=== PATIENT | female | born 1980 | race Caucasian/White ===

== ENCOUNTER 2019-12-11 18:56 | Emergency (ER) | payer OTHER ==
[~2019-12-11] VITALS: Ht 157.5 cm; Wt 77.1 kg
[2019-12-11] MEDS ORDERED: NF (19:24)
[2019-12-12 01:20] LABS: ABSOLUTE NEUTROPHILS 3.5 thou/uL (1.4-8.2); BASOPHILS 0.3 % (0.0-2.0); EOSINOPHILS 2.1 % (0.0-3.0); HEMOGLOBIN 12.5 gm/dL (12.0-15.0); LYMPHOCYTES 43.5 % (24.0-44.0); MCH 31.9 pg (26.0-34.0); MCHC 33.9 g/dL (28.0-37.0); MCV 93.9 fL (80.0-100.0); MONOCYTES 5.7 % (1.0-8.0); PLATELET COUNT 224 thou/uL (150-400); POLYS 48.4 % (36.0-66.0); RBC 3.94 mil/uL (4.20-5.00); RDW 12.2 % (10.5-14.5); WBC 7.2 thou/uL (4.0-11.0)
[2019-12-12 01:25] LABS: ANION GAP 11 mmol/L (7-16); BUN 12 mg/dL (7-18); CALCIUM 7.7 mg/dL (8.5-10.1); CHLORIDE 108 mmol/L (98-107); CO2 26 mmol/L (21-32); CREATININE 0.7 mg/dL (0.6-1.0); GLUCOSE 103 mg/dL (74-106); POTASSIUM 3.2 mmol/L (3.5-5.1); SODIUM 145 mmol/L (136-145)
[2019-12-12 01:31] LABS: ALBUMIN 3.4 g/dL (3.4-5.0); SALICYLATE < 2.8 mg/dL (2.8-20.0); SGOT 29 U/L (15-37); SGPT 23 U/L (30-65); TOTAL BILIRUBIN 0.2 mg/dL (<0.1-1.0); TOTAL PROTEIN 7.1 g/dL (6.4-8.2)
[2019-12-12 04:19] LABS: AMP/METHAMP Negative (Negative); BARBITURATES Negative (Negative); BENZODIAZEPINES Negative (Negative); COCAINE Negative (Negative); METHADONE Negative (Negative); OPIATES Negative (Negative); PCP Negative (Negative)
[2019-12-12] MEDS ORDERED: CELEXA 20 MG TA20 MG PO (05:21)
[2019-12-12 05:35] VITALS: BP 112/63
== END 2019-12-12 05:48 | disposition home or self-care (01) ==
LOC: ER 18:56
PROVIDERS: Emergency Medicine
DX: F32.9 Major depressive disorder, single episode, unspecified (principal); F10.129 Alcohol abuse with intoxication, unspecified; Y90.8 Blood alcohol level of 240 mg/100 ml or more; Z88.6 Allergy status to analgesic agent; Z79.899 Other long term (current) drug therapy

== ENCOUNTER 2019-12-21 11:10 | Emergency (ER) | payer OTHER ==
[~2019-12-21] VITALS: Ht 157.5 cm; Wt 74.8 kg
[~2019-12-21 11:10] MED LIST: CELEXA 20 MG TA20 MG PO; NF
[2019-12-21 11:35] LABS: BASOPHILS 0.3 % (0.0-2.0); HEMATOCRIT 37.2 % (37.0-47.0); MCHC 34.9 g/dL (28.0-37.0); MCV 91.8 fL (80.0-100.0); MONOCYTES 4.3 % (1.0-8.0); PLATELET COUNT 143 thou/uL (150-400); POLYS 81.4 % (36.0-66.0); RBC 4.05 mil/uL (4.20-5.00); RDW 12.1 % (10.5-14.5); WBC 6.2 thou/uL (4.0-11.0)
[2019-12-21 11:39] LABS: CALCIUM 9.2 mg/dL (8.5-10.1); CREATININE 0.9 mg/dL (0.6-1.0); POTASSIUM 3.4 mmol/L (3.5-5.1)
[2019-12-21 11:45] LABS: ALBUMIN 4.1 g/dL (3.4-5.0); MAGNESIUM 1.5 mg/dL (1.8-2.4); TOTAL BILIRUBIN 1.1 mg/dL (<0.1-1.0); TOTAL PROTEIN 8.5 g/dL (6.4-8.2)
[2019-12-21 12:39] LABS: URINE BLOOD NEGATIVE (Negative); URINE CLARITY CLEAR; URINE COLOR YELLOW; URINE GLUCOSE-RANDOM* NEGATIVE (Negative); URINE KETONES 3+ (Negative); URINE LEUKOCYTES-REFLEX NEGATIVE (Negative); URINE NITRITE-REFLEX NEGATIVE (Negative); URINE PROTEIN (DIPSTICK) 1+ (Negative)
[2019-12-21 12:48] LABS: ICTOTEST (BILI CONFIRMATORY) Negative (Negative); SSA (PROTEIN CONFIRMATORY) TRACE (APPROX. 5) mg/dL (Negative); URINE BILIRUBIN NEGATIVE (Negative)
[2019-12-21 12:49] LABS: MUCUS 0-3 Light strn/LPF (None Seen); SQUAMOUS >10 Many /LPF (0-3)
[2019-12-21 12:50] LABS: AMORPHOUS URATES Few /LPF (None Seen); CASTS None Seen /LPF (None Seen); URINE WBC-REFLEX 0-5 Rare /HPF (0-5)
[2019-12-21 12:51] LABS: URINE RBC None Seen /HPF (0-2)
[2019-12-21 15:45] VITALS: BP 141/112
--- NOTE | 2019-12-23 08:57 | EKG ---
[facility] [place] [facility] [place] [address] ELECTROCARDIOGRAM REPORT Name: ROGELIO GARCIA Room #: [facility].#: [id number] Admission: 12/21/19 Attend Phys: Discharge: 12/21/19 Date of : 82 Report #: [id number] THIS REPORT FOR: cc: STACIE - Jennifer family physician/PCP STACIE - Jennifer family physician/PCP Sean Banuelos MD ~ THIS REPORT FOR: //name// [facility] [place] [facility] ED Test Date: 2019-12-21 Test Time: 12:04:43 Pat Name: ROGELIO GARCIA Department: Room: Gender: Road Repairer: [facility] : 1980 Requested By: Bladimir Hanosn Order Number: [id number] MD: Sean Banuelos Measurements Intervals [place] Rate: 76 P: 41 MA: 114 QRS: 65 QRSD: 94 T: 64 QT: 394 QTc: 444 Interpretive Statements Sinus rhythm Borderline short MA interval No previous ECG available for comparison Electronically Signed On 12-23-2019 8:55:31 CDT by Sean Banuelos [email or web address] <ELECTRONICALLY SIGNED> By: Sean Banuelos MD 12/23/19 0855 03 03 Sean Banuelos MD /MIGUEL ANGEL
== END 2019-12-21 15:45 | disposition home or self-care (01) ==
LOC: ER 11:10
PROVIDERS: Emergency Medicine
DX: E86.0 Dehydration (principal); N76.0 Acute vaginitis; B96.89 Other specified bacterial agents as the cause of diseases classified elsewhere

== ENCOUNTER 2020-01-17 21:43 | Emergency (ER) | payer OTHER ==
[~2020-01-17] VITALS: Ht 157.5 cm; Wt 52.6 kg
[2020-01-17 22:53] LABS: ABSOLUTE NEUTROPHILS 6.2 thou/uL (1.4-8.2); BASOPHILS 0.2 % (0.0-2.0); HEMATOCRIT 39.6 % (37.0-47.0); HEMOGLOBIN 13.8 gm/dL (12.0-15.0); LYMPHOCYTES 12.1 % (24.0-44.0); MCH 33.8 pg (26.0-34.0); MCHC 34.9 g/dL (28.0-37.0); MCV 96.9 fL (80.0-100.0); PLATELET COUNT 141 thou/uL (150-400); POLYS 84.7 % (36.0-66.0); RBC 4.09 mil/uL (4.20-5.00); RDW 14.8 % (10.5-14.5); WBC 7.3 thou/uL (4.0-11.0)
[2020-01-17 22:57] LABS: ANION GAP 16 mmol/L (7-16); BUN 14 mg/dL (7-18); CALCIUM 9.1 mg/dL (8.5-10.1); CHLORIDE 98 mmol/L (98-107); CO2 22 mmol/L (21-32); CREATININE 0.8 mg/dL (0.6-1.0); GLUCOSE 145 mg/dL (74-106); POTASSIUM 3.6 mmol/L (3.5-5.1); SODIUM 136 mmol/L (136-145)
[2020-01-17 23:02] LABS: ALBUMIN 4.3 g/dL (3.4-5.0); DIRECT BILIRUBIN < 0.1 mg/dL (<0.1-0.2); LIPASE 147 U/L (73-393); SGOT 162 U/L (15-37); SGPT 122 U/L (30-65); TOTAL BILIRUBIN 0.9 mg/dL (0.2-1.0); TOTAL PROTEIN 8.9 g/dL (6.4-8.2)
[2020-01-17] MEDS ORDERED: NOHOMEMEDICATIONS (23:30)
[2020-01-17 23:48] LABS: URINE BILIRUBIN 2+ (Negative); URINE BLOOD 3+ (Negative); URINE CLARITY CLEAR; URINE COLOR ORANGE; URINE GLUCOSE-RANDOM* NEGATIVE (Negative); URINE KETONES 3+ (Negative); URINE LEUKOCYTES-REFLEX TRACE (Negative); URINE NITRITE-REFLEX NEGATIVE (Negative); URINE PROTEIN (DIPSTICK) 2+ (Negative); URINE SPECIFIC GRAVITY >= 1.030 (1.005-1.035); URINE UROBILINOGEN 0.2 E.U./dl (0.2-1.0)
[2020-01-17 23:54] LABS: SQUAMOUS 4-10 Moderate /LPF (0-3)
[2020-01-17 23:55] LABS: BACTERIA-REFLEX 1-9 Few /HPF (None Seen); CASTS None Seen /LPF (None Seen); CRYSTALS None Seen /LPF (None Seen); MUCUS 4-6 Moderate strn/LPF (None Seen); URINE RBC >20 Many /HPF (0-2); URINE WBC-REFLEX 0-5 Rare /HPF (0-5)
[2020-01-18] MEDS ORDERED: MAGIC MOUTHWASH PO (02:20)
[2020-01-18 02:27] VITALS: BP 129/93
[2020-01-19] MEDS ORDERED: NEXIUM 40 MG CA40 M1 PO (19:05)
[2020-01-19] MEDS ORDERED: TRAMADOL 50 MG50 MG PO (22:39)
[2020-01-19] MEDS ORDERED: ONDANSETRON ODT8 MG PO (22:39)
[2020-01-19] MEDS ORDERED: PRILOSEC OTC20 MG PO (22:46)
== END 2020-01-18 02:34 | disposition home or self-care (01) ==
LOC: ER 21:43
PROVIDERS: Emergency Medicine
DX: R10.9 Unspecified abdominal pain (principal); R11.2 Nausea with vomiting, unspecified; R19.7 Diarrhea, unspecified; K21.9 Gastro-esophageal reflux disease without esophagitis; Z88.6 Allergy status to analgesic agent

== ENCOUNTER 2020-01-19 18:50 | Emergency (ER) | payer OTHER ==
[~2020-01-19] VITALS: Ht 157.5 cm; Wt 74.8 kg
[~2020-01-19 18:50] MED LIST changes: +MAGIC MOUTHWASH PO; +NOHOMEMEDICATIONS
[2020-01-19] MEDS ORDERED: NEXIUM 40 MG CA40 M1 PO (19:05)
[2020-01-19 19:27] LABS: URINE BILIRUBIN 2+ (Negative); URINE BLOOD TRACE (Negative); URINE CLARITY CLEAR; URINE COLOR YELLOW; URINE GLUCOSE-RANDOM* NEGATIVE (Negative); URINE KETONES 2+ (Negative); URINE LEUKOCYTES-REFLEX NEGATIVE (Negative); URINE NITRITE-REFLEX NEGATIVE (Negative); URINE PROTEIN (DIPSTICK) NEGATIVE (Negative); URINE SPECIFIC GRAVITY >= 1.030 (1.005-1.035); URINE UROBILINOGEN 0.2 E.U./dl (0.2-1.0)
[2020-01-19 19:27] LABS: ABSOLUTE NEUTROPHILS 4.5 thou/uL (1.4-8.2); BASOPHILS 0.2 % (0.0-2.0); EOSINOPHILS 0.3 % (0.0-3.0); HEMATOCRIT 39.5 % (37.0-47.0); HEMOGLOBIN 13.6 gm/dL (12.0-15.0); LYMPHOCYTES 18.9 % (24.0-44.0); MCH 33.5 pg (26.0-34.0); MCHC 34.4 g/dL (28.0-37.0); MCV 97.5 fL (80.0-100.0); MONOCYTES 5.7 % (1.0-8.0); PLATELET COUNT 180 thou/uL (150-400); POLYS 74.9 % (36.0-66.0); RBC 4.05 mil/uL (4.20-5.00); RDW 14.7 % (10.5-14.5); WBC 6.1 thou/uL (4.0-11.0)
[2020-01-19 19:30] LABS: ICTOTEST (BILI CONFIRMATORY) Positive (Negative)
[2020-01-19 19:36] LABS: AMP/METHAMP Negative (Negative); BARBITURATES Negative (Negative); BENZODIAZEPINES Negative (Negative); COCAINE Negative (Negative); METHADONE Negative (Negative); OPIATES Negative (Negative); PCP Negative (Negative)
[2020-01-19 19:51] LABS: CALCIUM 8.5 mg/dL (8.5-10.1); CREATININE 0.8 mg/dL (0.6-1.0)
[2020-01-19 19:57] LABS: ALBUMIN 4.2 g/dL (3.4-5.0); TOTAL BILIRUBIN 0.7 mg/dL (0.2-1.0); TOTAL PROTEIN 8.5 g/dL (6.4-8.2)
[2020-01-19] MEDS ORDERED: ONDANSETRON ODT8 MG PO (22:39)
[2020-01-19] MEDS ORDERED: TRAMADOL 50 MG50 MG PO (22:39)
[2020-01-19] MEDS ORDERED: PRILOSEC OTC20 MG PO (22:46)
[2020-01-19 23:23] VITALS: BP 130/78
== END 2020-01-19 23:03 | disposition home or self-care (01) ==
LOC: ER 18:50
PROVIDERS: Physician Assistant
DX: F10.10 Alcohol abuse, uncomplicated (principal); E87.6 Hypokalemia; R94.5 Abnormal results of liver function studies; R11.2 Nausea with vomiting, unspecified; R19.7 Diarrhea, unspecified; R10.13 Epigastric pain; K21.9 Gastro-esophageal reflux disease without esophagitis; Z88.6 Allergy status to analgesic agent; Z79.899 Other long term (current) drug therapy; Y90.9 Presence of alcohol in blood, level not specified

== ENCOUNTER 2020-01-20 21:24 | Emergency (ER) | payer OTHER ==
[~2020-01-20] VITALS: Ht 157.5 cm; Wt 74.8 kg
[~2020-01-20 21:24] MED LIST changes: +NEXIUM 40 MG CA40 M1 PO; +ONDANSETRON ODT8 MG PO; +PRILOSEC OTC20 MG PO; +TRAMADOL 50 MG50 MG PO
[2020-01-20 21:53] LABS: URINE BILIRUBIN NEGATIVE (Negative); URINE BLOOD 3+ (Negative); URINE CLARITY CLEAR; URINE COLOR YELLOW; URINE GLUCOSE-RANDOM* NEGATIVE (Negative); URINE KETONES 1+ (Negative); URINE LEUKOCYTES-REFLEX NEGATIVE (Negative); URINE NITRITE-REFLEX NEGATIVE (Negative); URINE PROTEIN (DIPSTICK) NEGATIVE (Negative); URINE SPECIFIC GRAVITY >= 1.030 (1.005-1.035); URINE UROBILINOGEN 0.2 E.U./dl (0.2-1.0)
[2020-01-20 21:54] LABS: HEMATOCRIT 38.9 % (37.0-47.0); HEMOGLOBIN 13.6 gm/dL (12.0-15.0); MCH 33.7 pg (26.0-34.0); MCV 96.5 fL (80.0-100.0); RBC 4.03 mil/uL (4.20-5.00); RDW 14.7 % (10.5-14.5); WBC 4.8 thou/uL (4.0-11.0)
[2020-01-20 22:02] LABS: AMORPHOUS URATES Moderate /LPF (None Seen); URINE RBC 0-2 Rare /HPF (0-2)
[2020-01-20 22:03] LABS: BACTERIA-REFLEX 1-9 Few /HPF (None Seen); CASTS None Seen /LPF (None Seen); SQUAMOUS None Seen /LPF (0-3); URINE WBC-REFLEX None Seen /HPF (0-5)
[2020-01-20 22:04] LABS: CALCIUM 8.7 mg/dL (8.5-10.1); CREATININE 0.9 mg/dL (0.6-1.0); POTASSIUM 3.3 mmol/L (3.5-5.1)
[2020-01-20 22:10] LABS: TOTAL BILIRUBIN 0.6 mg/dL (0.2-1.0); TOTAL PROTEIN 8.1 g/dL (6.4-8.2)
[2020-01-21] MEDS ORDERED: CIPRODEX OTIC7.5 ML OTIC (01:05)
[2020-01-21] MEDS ORDERED: REGLAN10 MG PO (01:08)
[2020-01-21 02:50] VITALS: BP 109/80
== END 2020-01-21 02:55 | disposition home or self-care (01) ==
LOC: ER 21:24
PROVIDERS: Student in an Organized Health Care Education/Training Program
DX: K29.70 Gastritis, unspecified, without bleeding (principal); R11.2 Nausea with vomiting, unspecified; K21.9 Gastro-esophageal reflux disease without esophagitis; Z79.899 Other long term (current) drug therapy; Z98.890 Other specified postprocedural states